=== PATIENT | female | born 1990 | race Caucasian/White ===

== ENCOUNTER → 2020-12-10 12:24 | Outpatient (BNVA) | payer OTHER, SELFPAY | PROVIDERS: PCP Internal Medicine; Visit Provider Specialist | DX: G40.909 Epilepsy, unspecified, not intractable, without status epilepticus (principal); F17.200 Nicotine dependence, unspecified, uncomplicated | CPT/HCPCS: 99204; 99205 ==

== ENCOUNTER → 2023-04-02 12:51 | Outpatient (BNVA) | payer SELFPAY | PROVIDERS: Visit Provider Nurse Practitioner Family | DX: R11.10 Vomiting, unspecified (principal); R10.9 Unspecified abdominal pain | CPT/HCPCS: 80053; 80307; 81003; 85025 ==

== ENCOUNTER → 2023-04-06 10:22 | Outpatient (BNVA) | payer OTHER, SELFPAY | PROVIDERS: Visit Provider Obstetrics & Gynecology | DX: N89.8 Other specified noninflammatory disorders of vagina (principal); R30.0 Dysuria; Z12.4 Encounter for screening for malignant neoplasm of cervix | CPT/HCPCS: 86592; 86803; 87340; 87491; 87591; 87624; 87806 ==